=== PATIENT | male | born 2000 | race Caucasian/White ===

== ENCOUNTER 2018-05-03 13:05 | Emergency (ER) | payer MEDICAID, SELFPAY ==
[2018-05-03 13:09] VITALS: BP 126/62; PULSE 80; RESP 16; TEMP 36.8; O2SAT 94
--- NOTE | 2018-05-03 14:48 | ED.GENADUL_ITS ---
Discharge Plan Discharge Details Chief Complaint: GenMedical Primary Care Provider: NONE,NONE ED Provider: Olivia Sutherland Home Meds and New Rx's Prescriptions: No Action albuterol sulfate 8.5 GM HFA aerosol inhaler 3 puff Inhalation PRN RF: 0 Discharge Data Discharge Date/Time-TO BE ENTERED AT DEPARTURE: 05/03/18 15:53 Medical Decision Making MDM Narrative Medical decision making narrative: Patient presents today feeling unwell but largely started this morning. He did have a brief episode of GI upset last night. No vomiting today. Exam is fairly benign. He is also endorsing mild headache. Neuro exam is intact. Patient is afebrile, he appears nontoxic. Exam is otherwise benign. He is not currently endorsing any nausea. Advised that his generalized symptoms may be viral etiology. We will obtain laboratory evaluation and hydrate the patient as he does appear slightly dehydrated on exam. Discussed this plan with the patient who is in agreement. Patient is appointment to start the IV, patient did have a weight secondary to the current needs of the department. When the nurse went in to start the IV he reported that he needed a phone call and quickly got up and left. Patient returned to the department, IV was started as was laboratory evaluation and hydration While awaiting the lab results, patient decided to leave AMA. I was with another patient unable to assess the patient at this time. However, nursing reports that he wanted to leave because everything was taken to long. AMA form was signed. After the patient departed the department was able to review laboratory evaluation and no acute abnormalities are noted. Tick panel is still pending. HPI - General Adult General Date/Time Provider Initiated Documentation: 05/03/18 13:27 . Limitations to Documentation: no limitations . Information obtained by: patient . HPI Narrative: Patient is an otherwise healthy 17-year-old male presenting today with chief complaint of body aches, nausea/vomiting, rash on the lateral aspect of his neck. Patient reports that starting last night he was endorsing some nausea. He reports he vomited ?1. Has not had any vomiting today. She denies any abdominal pain. Reports that this morning he awoke with headache, fatigue and generalized body aches. They are not localized to the joints. He reports this is fairly diffuse. Is also endorsing some lightheadedness. Reports this is intermittent and is not active currently. Reports he took Tylenol this morning. Is declining any further analgesics. Reports I do not like to take medicine. Reports that while waiting in the waiting room his friend also noted a rash to the left side of his neck. He denies any symptoms of this. He is noted to be itchy or painful. Denies any recent fevers or chills Related Data Home Medications Medication Instructions Recorded Confirmed albuterol sulfate 3 puff INHALATION PRN 01/30/14 09/14/14 Allergies Allergy/AdvReac Type Severity Reaction Status Date / Time amoxicillin [Amoxicillin] Allergy Mild Hives Unverified 09/14/14 20:49 amoxicillin trihydrate Allergy Mild Hives Unverified 09/14/14 20:49 [From Augmentin] potassium clavulanate Allergy Mild Hives Unverified 09/14/14 20:49 [From Augmentin] General Stated Complaint: GenMedical SHAYLA: 4 Review of Systems Constitutional Reports as per HPI, Denies chills, Denies difficulty sleeping, Reports fatigue, Denies fever(s), Reports headache(s) and Reports poor appetite Eyes Patient Denies blurry vision, Denies change in vision and Denies loss of vision ENT Reports as per HPI, Denies vertigo, Denies otalgia, Reports headache(s), Denies epistaxis, Denies nasal congestion, Denies sinus pressure, Denies sore throat and Denies throat swelling Cardiovascular Denies chest pain, Denies pedal edema, Denies palpitations and Denies dyspnea Respiratory Denies cough and Denies dyspnea Gastrointestinal Reports as per HPI Genitourinary Reports system reviewed and no additional complaints, except as docu Musculoskeletal Denies abnormal gait and Denies numbness Integumentary/Breasts Denies rash, Denies skin pain and Denies wounds Neurologic Denies abnormal movements, Denies abnormal speech, Denies abnormal gait, Denies behavioral changes, Denies confusion, Denies vertigo, Reports headache(s), Denies focal weakness, Denies loss of vision and Denies numbness Psychiatric Denies behavioral changes and Denies confusion Endocrine Reports fatigue and Denies palpitations Allergic/Immunologic Denies throat swelling [facility] Social History Smoking/Tobacco Use Status: Never Exam Const General: cooperative, healthy appearing, comfortable, no acute distress, well developed and well groomed Nutritional Appearance: average body habitus and well nourished Orientation: alert and awake [facility] Head: normal to inspection and normocephalic Ears: hearing grossly normal bilaterally, external ears normal and TM's normal bilaterally General nose exam: external nose normal Face and sinus: normal facial exam Mouth: oral mucosae normal, lip normal and tongue normal Teeth and gingiva: dentition normal Throat: posterior oropharynx normal, tonsils normal and uvula midline Eyes General: appearance normal, both eyes and all related structures Visual Carpenter: normal visual carpenter by confrontation Alignment and Position: alignment normal Periorbital: periorbital findings normal Eyelids: eyelids normal Conjunctivae: conjunctivae normal Pupils: PERRL and accommodation normal Neck Neck: normal visual inspection, full ROM, no lymphadenopathy and no meningeal signs Resp Effort & Inspection: normal respiratory effort, able to speak in complete sentences and no respiratory distress Auscultation: clear to auscultation bilaterally Cardio Rate: regular rate Rhythm: regular rhythm Heart Sounds: S1 normal GI Inspection: normal to inspection, no abdominal wall ecchymosis, no edema and non -distended Palpation: soft, no hepatosplenomegaly, not firm, no guarding, no masses, not rigid and nontender Auscultation: normal bowel sounds Back/Spine/Pelvis Back: no CVA tenderness Skin General skin exam: no rashes or lesions noted Lesions: no lesions Rashes: no rashes Trauma: no lacerations or abrasions Wounds: no wounds Neuro General: alert, awake, oriented x3, gait normal, tone normal and moves all extremities Cranial Nerves: CN's II-XI intact bilaterally, PERRL, accommodation normal, EOM intact bilaterally, no nystagmus and facial strength normal Cognition: normal cognition Speech: speech normal Gait: normal gait Motor: muscle tone normal throughout, strength 5/5 throughout, no pronator drift and no movement abnormalities noted Sensory Exam: no sensory deficits noted Coordination: [id number] test normal, [id number] test normal, Romberg test normal and rapid alternating movement UE normal Psych Appearance: grossly normal and well kempt Mental Status: mental status grossly normal Speech and Movement: speech and movement normal Mood: congruent mood Affect: normal affect Attitude: cooperative Course Vital Signs Temperature 36.8 C 05/03/18 13:09 Pulse 80 05/03/18 13:09 Respiratory Rate 16 05/03/18 13:09 Blood Pressure 126/62 05/03/18 13:09 Pulse Oximetry 94 L 05/03/18 13:09 Temperature 36.8 C 05/03/18 13:09 Pulse 80 05/03/18 13:09 Respiratory Rate 16 05/03/18 13:09 Blood Pressure 126/62 05/03/18 13:09 Pulse Oximetry 94 L 05/03/18 13:09
[2018-05-03] MEDS: Normal Saline 1,000 ML 1000 ML IV (15:24)
[2018-05-03 15:32] LABS: HCT 42.6 % (40.0-50.0); HGB 14.8 g/dL (13.5-17.5); Mean Corp. HGB Concentration 34.7 g/dL (32.0-36.0); Mean Corpuscular Hemoglobin 30.3 pg (27.0-33.0); Mean Corpuscular Volume 87.3 fL (80-95); Mean Platelet Volume 9.4 fL (8.0-11.0); Platelet Count 262 x1000/uL (130-400); RBC 4.88 m/cumm (4.50-6.00); RBC Distribution Width 12.7 % (11.8-14.1); White Blood Cell Count 6.91 k/cumm (4.4-10.8)
[2018-05-03 15:55] VITALS: RESP 16
[2018-05-03 16:02] LABS: ALT 24 U/L (12-78); AST 18 U/L (15-37); Albumin 4.4 g/dL (3.4-5.0); Alkaline Phosphatase 75 U/L (46-116); Anion Gap 3.4 mmol/L (3-11); BUN 8 mg/dL (7-18); Bilirubin, Total 0.4 mg/dL (0.2-1.0); CO2 29.6 mmol/L (21.0-32.0); CREATININE 0.71 mg/dL (0.70-1.30); Chloride 105 mmol/L (98-107); Glucose 88 mg/dL (70-100); Potassium 4.2 mmol/L (3.5-5.1); Sodium 138 mmol/L (136-145); Total Protein 7.7 g/dL (6.4-8.2)
[2018-05-05 13:44] LABS: Lyme Ab w Rflx to Lyme Confirm Negative
[2018-05-05 23:19] LABS: Anaplasma phagocytophilum Negative (Negative); B. miyamotoi PCR Negative (Negative); Babesia divergens/MO-1 Negative (Negative); Babesia duncani Negative (Negative); Babesia microti Negative (Negative); Ehrlichia chaffeensis Negative (Negative); Ehrlichia ewingii/canis Negative (Negative); Ehrlichia muris eauclairensis Negative (Negative)
== END 2018-05-03 15:53 ==
LOC: ER 14:19
PROVIDERS: Emergency Provider Physician Assistant
DX: R53.81 Other malaise (principal); Z53.29 Procedure and treatment not carried out because of patient's decision for other reasons
CPT/HCPCS: 80053; 85027; 96360; 99283; 86618; 87798

== ENCOUNTER 2018-07-09 13:25 | Emergency (ER) | payer MEDICAID, SELFPAY ==
[2018-07-09 13:34] VITALS: BP 136/79; PULSE 109; RESP 16; TEMP 37.1; O2SAT 96
[2018-07-09 13:37] VITALS: RESP 18
--- NOTE | 2018-07-09 13:41 | DI.RAD_ITS ---
SYMPTOM/DIAGNOSIS: 5TH METACARPAL AND MCP JOINT PAIN RIGHT HAND: Three views. No acute fracture or dislocation is identified. There is mild soft tissue swelling of the index finger. No radiopaque foreign bodies are identified. IMPRESSION: No acute fracture or dislocation. Follow up as clinically appropriate.
--- NOTE | 2018-07-09 14:35 | DI.VRAD_ITS ---
EXAM: XR Right Hand Complete, 3 or more Views EXAM DATE/TIME: 07/09/2018 1:52 PM CLINICAL HISTORY: 17 years old, male; Injury or trauma; Injury history: Banged hand on refrig; Initial encounter; Sprain or strain; Right TECHNIQUE: XR Right hand 3 or more views. COMPARISON: No relevant prior studies available. FINDINGS: Bones/joints: No acute fracture or dislocation is identified. Soft tissues: The soft tissues of the second finger appear mildly swollen. No radiopaque foreign body is identified. IMPRESSION: Mild soft tissue swelling of the second finger without acute fracture or dislocation identified. May consider follow-up in 7 to 10 days if symptoms persist. Dictated and Authenticated by: Reymundo Castorena MD. Ordering:SHARON GAY MD
--- NOTE | 2018-07-09 15:06 | ED.GENADUL_ITS ---
Discharge Plan Disposition Patient Disposition: HOME Condition: Good Discharge Details Chief Complaint: GenMedical Clinical Impression: Finger pain Primary Care Provider: NONE,NONE ED Provider: Gigi Salvador Home Meds and New Rx's Prescriptions: No Action albuterol sulfate 8.5 GM HFA aerosol inhaler 3 puff Inhalation PRN RF: 0 Discharge Instructions Instructions: Finger Sprain (ED) Additional Instructions: Please take Tylenol and Motrin as needed for pain. If you notice any worsening of your symptoms please return immediately. If you notice any worsening of your symptoms, or any new symptoms such as vomiting, diarrhea, fever, chills, shortness of breath, chest pain, numbness, weakness, or fainting , please return immediately to the emergency department for reevaluation. Please follow up with your primary care provider as soon as possible for reassessment and reevaluation. As always, it was a pleasure participating in your medical care today. Discharge Data Discharge Date/Time-TO BE ENTERED AT DEPARTURE: 07/09/18 14:16 Medical Decision Making This is a 17-year-old male with no significant past medical history who presents today for pain in his fifth metacarpal joint after hitting it on a refrigerator yesterday. There is a small bruise over the joint itself, demonstrates minimal pain with movement. Minimal pain with palpation. No evidence of rotational deformity normal flexion extension. No evidence of displacement or abnormality. Came in because my girlfriend made me come in. Physical exam demonstrates no other concerning signs or symptoms, however because of the location boxer fracture is on the differential. X-ray was ordered and demonstrates no evidence of acute fracture. Patient will be discharged home with instructions for NSAID use, and ice as needed. I have extensively reviewed the treatment plan and discharge instructions with the patient and their family. I have addressed all patient concerns at this time. The patient and family was made aware of what symptoms to monitor for that would warrant a return to the emergency department. Discussed the plan with the patient and family, they demonstrate verbal understanding and agreement with our assessment and plan at this time. HPI General Date/Time Provider Initiated Documentation: 07/09/18 13:41 . HPI Narrative: This is a 17-year-old male with no significant past medical history who presents today for evaluation of right knuckle pain. He states that yesterday at work he hit his knuckle on a refrigerator and had some mild pain since then. He describes it is very minimal in nature, but states that his girlfriend convinced him to come in. He states that it is worse with movement, improved by nothing. He is right-hand dominant. He works at [employer]. He denies any associated symptoms and the rest of his hand, his other fingers or his wrist. He denies any history of significant bone fractures. He has no other complaints at this time. Related Data Home Medications Medication Instructions Recorded Confirmed albuterol sulfate 3 puff INHALATION PRN 01/30/14 09/14/14 Allergies Allergy/AdvReac Type Severity Reaction Status Date / Time amoxicillin [Amoxicillin] Allergy Mild Hives Unverified 09/14/14 20:49 amoxicillin trihydrate Allergy Mild Hives Unverified 09/14/14 20:49 [From Augmentin] potassium clavulanate Allergy Mild Hives Unverified 09/14/14 20:49 [From Augmentin] General Stated Complaint: GenMedical SHAYLA: 5 Review of Systems Review of Systems All systems reviewed & are unremarkable except as noted in HPI and below PFSH Social History Smoking/Tobacco Use Status: Former Tobacco Use Exam Narrative Exam Narrative: 1.Const: Well-nourished, Well-developed, appearing stated age 2.Eyes: PERRL, no conjunctival injection, and symmetrical lids. 3.ENT: Atraumatic external nose and ears. Moist MM. Neck: Symmetric, trachea midline, No thyromegaly. 4.CVS: +S1/S2, No murmurs or gallops. Peripheral pulses 2+ and equal in all extremities. Brisk capillary refill in all extremities. 5.RESP: Unlabored respiratory effort. Clear to auscultation bilaterally. No wheezes rales or rhonchi 6.GI: Soft, Nontender/Nondistended, No hepatosplenomegaly. No guarding or rebound. 7.MSK: Normocephalic/Atraumatic, Extremities w/o deformity. No cyanosis or clubbing, Normal movement of all extremities. Patient demonstrates minimal tenderness over the MCP joint on his fifth digit on his right hand. Patient demonstrates excellent 5 out of 5 flexion and extension. No rotational deformity of the finger with flexion. No signs of deformity or abnormality. No evidence of displacement. 8.Skin: Warm, Dry. No rashes or lesions. 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 Sensation grossly intact, no focal neurologic deficits. 10.Psych: (AAO) x3. Appropriate mood and affect Course Vital Signs Temperature 37.1 C 07/09/18 13:34 Pulse 109 H 07/09/18 13:34 Respiratory Rate 16 07/09/18 13:34 Blood Pressure 136/79 07/09/18 13:34 Pulse Oximetry 96 07/09/18 13:34 Temperature 37.1 C 07/09/18 13:34 Temperature Source Temporal Artery Scan 07/09/18 13:34 Pulse 109 H 07/09/18 13:34 Respiratory Rate 18 07/09/18 13:37 Respiratory Effort 07/09/18 13:37 Respiratory Depth Normal 07/09/18 13:37 Blood Pressure 136/79 07/09/18 13:34 Blood Pressure Position Sitting 07/09/18 13:34 Pulse Oximetry 96 07/09/18 13:34 Oxygen Delivery Method Room Air 07/09/18 13:34 Oxygen Flow Rate 0 07/09/18 13:34 Pain Level 6 07/09/18 13:34
== END 2018-07-09 14:16 | disposition home or self-care (01) ==
PROVIDERS: Emergency Provider Student in an Organized Health Care Education/Training Program
DX: M79.641 Pain in right hand (principal)
CPT/HCPCS: 99283; 73130; 99282

== ENCOUNTER 2018-08-05 13:37 | Emergency (ER) | payer MEDICAID, SELFPAY ==
[2018-08-05 13:45] VITALS: BP 111/63; PULSE 86; RESP 16; TEMP 36.8; O2SAT 98
--- NOTE | 2018-08-05 14:27 | W.ED.GENAD ---
Discharge Plan Disposition Patient Disposition: HOME Condition: Stable Discharge Details Chief Complaint: Nausea/Vomit/Diar Clinical Impression: Vomiting Primary Care Provider: None,None ED Provider: Kelley Kevin Home Meds and New Rx's Prescriptions: Continue albuterol sulfate 8.5 GM HFA aerosol inhaler 3 puff Inhalation PRN RF: 0 Discharge Instructions Instructions: Acute Nausea and Vomiting (ED) Additional Instructions: Drink plenty of fluids and get plenty of rest. Follow a bland diet for the next 1-2 days, crackers, toast. Follow-up with your primary care doctor in 1 week for reevaluation. Return immediately to the emergency department for any worsening or new concerning symptoms. Stand Alone Forms: Work Release Discharge Data Discharge Date/Time-TO BE ENTERED AT DEPARTURE: 08/05/18 14:42 Discharge Physician: Kelley Kevin Medical Decision Making 17-year-old male who presents for work note this morning. Patient works at [employer] and states he called out of work this morning for vomiting once and was sent here by his employer for a work note to return tomorrow. Patient denies any further nausea or vomiting. He denies any fever, abdominal pain, diarrhea. Vitals within normal limits. Abdomen soft and nontender. Patient appears nontoxic. Patient states he does not want any workup or medication and only wants a work note. Patient instructed to follow-up with his primary care doctor and return here with any worsening symptoms. HPI General Mode of arrival: ambulatory. Date/Time Provider Initiated Documentation: 08/05/18 13:42. Limitations to Documentation: no limitations. Information obtained by: patient. HPI Narrative: Patient is a 17-year-old male who presents for a work note for today. Patient states he vomited once this morning and states it was blood streaked. No nausea and vomiting since then. Patient denies any fever, diarrhea, urinary symptoms or abdominal pain. He denies any recent surgery, recent travel or recent antibiotics. Patient states he works at [employer] and was told to come here today for a work note so he can return to work tomorrow. Related Data Home Medications Medication Instructions Recorded Confirmed albuterol sulfate 3 puff INHALATION PRN 01/30/14 09/14/14 Allergies Allergy/AdvReac Type Severity Reaction Status Date / Time amoxicillin [Amoxicillin] Allergy Mild Hives Unverified 08/05/18 13:49 amoxicillin trihydrate Allergy Mild Hives Unverified 08/05/18 13:49 [From Augmentin] potassium clavulanate Allergy Mild Hives Unverified 08/05/18 13:49 [From Augmentin] General Stated Complaint: Nausea/Vomit/Diar SHAYLA: 4 Review of Systems Review of Systems All systems reviewed & are unremarkable except as noted in HPI and below Constitutional Reports as per HPI, Denies chills and Denies fever(s) Eyes Denies blurry vision ENT Denies dizziness, Denies sore throat and Denies throat swelling Cardiovascular Denies chest pain and Denies dyspnea Respiratory Denies dyspnea Gastrointestinal Denies abdominal pain, Denies diarrhea and Reports vomiting Genitourinary Denies hematuria and Denies dysuria Musculoskeletal Denies back pain and Denies numbness Integumentary/Breasts Denies lesions and Denies rash Neurologic Denies dizziness and Denies numbness Allergic/Immunologic Denies throat swelling PFSH Asthma (Chronic) Depression (Chronic) S/p bilateral myringotomy with tube placement (Acute) Medical History Asthma (Chronic) Depression (Chronic) Social History Smoking/Tobacco Use Status: Former Tobacco Use Surgical History S/p bilateral myringotomy with tube placement (Acute) Social History Smoking/Tobacco Use Status: Former Tobacco Use alcohol intake: current alcohol intake frequency: holidays/special occasions only substance use type: marijuana Exam Const General: cooperative, healthy appearing and no acute distress HENMT Head: normal to inspection Mouth: oral mucosae normal Eyes General: appearance normal, both eyes and all related structures Neck Neck: normal visual inspection Resp Effort & Inspection: normal respiratory effort and able to speak in complete sentences Auscultation: clear to auscultation bilaterally Cardio Rate: regular rate Rhythm: regular rhythm GI Palpation: soft, not firm, not rigid and nontender Auscultation: normal bowel sounds Skin General skin exam: no rashes or lesions noted Neuro General: alert, awake and oriented x3 Motor: muscle tone normal throughout Extrem General: normal to inspection and full ROM Psych Appearance: grossly normal Affect: normal affect Course Vital Signs Temperature 98.2 F 08/05/18 13:45 Pulse 86 08/05/18 13:45 Respiratory Rate 16 08/05/18 13:45 Blood Pressure 111/63 08/05/18 13:45 Pulse Oximetry 98 08/05/18 13:45 Temperature 98.2 F 08/05/18 13:45 Temperature Source Skin 08/05/18 13:45 Pulse 86 08/05/18 13:45 Respiratory Rate 16 08/05/18 13:45 Respiratory Effort 08/05/18 13:47 Blood Pressure 111/63 08/05/18 13:45 Blood Pressure Position Sitting 08/05/18 13:45 Pulse Oximetry 98 08/05/18 13:45 Oxygen Delivery Method Room Air 08/05/18 13:45 Oxygen Flow Rate 0 08/05/18 13:45 Pain Level 0 08/05/18 13:45
--- NOTE | 2018-08-05 14:35 | ED.GENADUL_ITS ---
Discharge Plan Disposition Patient Disposition: HOME Condition: Stable Discharge Details Chief Complaint: Nausea/Vomit/Diar Clinical Impression: Vomiting Primary Care Provider: None,None ED Provider: Kelley Kevin Home Meds and New Rx's Prescriptions: Continue albuterol sulfate 8.5 GM HFA aerosol inhaler 3 puff Inhalation PRN RF: 0 Discharge Instructions Instructions: Acute Nausea and Vomiting (ED) Additional Instructions: Drink plenty of fluids and get plenty of rest. Follow a bland diet for the next 1-2 days, crackers, toast. Follow-up with your primary care doctor in 1 week for reevaluation. Return immediately to the emergency department for any worsening or new concerning symptoms. Stand Alone Forms: Work Release Discharge Data Discharge Date/Time-TO BE ENTERED AT DEPARTURE: 08/05/18 14:42 Discharge Physician: Kelley Kevin Medical Decision Making 17-year-old male who presents for work note this morning. Patient works at [employer] and states he called out of work this morning for vomiting once and was sent here by his employer for a work note to return tomorrow. Patient denies any further nausea or vomiting. He denies any fever, abdominal pain, diarrhea. Vitals within normal limits. Abdomen soft and nontender. Patient appears nontoxic. Patient states he does not want any workup or medication and only wants a work note. Patient instructed to follow-up with his primary care doctor and return here with any worsening symptoms. HPI General Mode of arrival: ambulatory . Date/Time Provider Initiated Documentation: 08/05/18 13:42 . Limitations to Documentation: no limitations . Information obtained by: patient . HPI Narrative: Patient is a 17-year-old male who presents for a work note for today. Patient states he vomited once this morning and states it was blood streaked. No nausea and vomiting since then. Patient denies any fever, diarrhea, urinary symptoms or abdominal pain. He denies any recent surgery, recent travel or recent antibiotics. Patient states he works at [employer] and was told to come here today for a work note so he can return to work tomorrow. Related Data Home Medications Medication Instructions Recorded Confirmed albuterol sulfate 3 puff INHALATION PRN 01/30/14 09/14/14 Allergies Allergy/AdvReac Type Severity Reaction Status Date / Time amoxicillin [Amoxicillin] Allergy Mild Hives Unverified 08/05/18 13:49 amoxicillin trihydrate Allergy Mild Hives Unverified 08/05/18 13:49 [From Augmentin] potassium clavulanate Allergy Mild Hives Unverified 08/05/18 13:49 [From Augmentin] General Stated Complaint: Nausea/Vomit/Diar SHAYLA: 4 Review of Systems Review of Systems All systems reviewed & are unremarkable except as noted in HPI and below Constitutional Reports as per HPI, Denies chills and Denies fever(s) Eyes Denies blurry vision ENT Denies dizziness, Denies sore throat and Denies throat swelling Cardiovascular Denies chest pain and Denies dyspnea Respiratory Denies dyspnea Gastrointestinal Denies abdominal pain, Denies diarrhea and Reports vomiting Genitourinary Denies hematuria and Denies dysuria Musculoskeletal Denies back pain and Denies numbness Integumentary/Breasts Denies lesions and Denies rash Neurologic Denies dizziness and Denies numbness Allergic/Immunologic Denies throat swelling PFSH Asthma (Chronic) Depression (Chronic) S/p bilateral myringotomy with tube placement (Acute) Medical History Asthma (Chronic) Depression (Chronic) Social History Smoking/Tobacco Use Status: Former Tobacco Use Surgical History S/p bilateral myringotomy with tube placement (Acute) Social History Smoking/Tobacco Use Status: Former Tobacco Use alcohol intake: current alcohol intake frequency: holidays/special occasions only substance use type: marijuana Exam Const General: cooperative, healthy appearing and no acute distress HENMT Head: normal to inspection Mouth: oral mucosae normal Eyes General: appearance normal, both eyes and all related structures Neck Neck: normal visual inspection Resp Effort & Inspection: normal respiratory effort and able to speak in complete sentences Auscultation: clear to auscultation bilaterally Cardio Rate: regular rate Rhythm: regular rhythm GI Palpation: soft, not firm, not rigid and nontender Auscultation: normal bowel sounds Skin General skin exam: no rashes or lesions noted Neuro General: alert, awake and oriented x3 Motor: muscle tone normal throughout Extrem General: normal to inspection and full ROM Psych Appearance: grossly normal Affect: normal affect Course Vital Signs Temperature 98.2 F 08/05/18 13:45 Pulse 86 08/05/18 13:45 Respiratory Rate 16 08/05/18 13:45 Blood Pressure 111/63 08/05/18 13:45 Pulse Oximetry 98 08/05/18 13:45 Temperature 98.2 F 08/05/18 13:45 Temperature Source Skin 08/05/18 13:45 Pulse 86 08/05/18 13:45 Respiratory Rate 16 08/05/18 13:45 Respiratory Effort 08/05/18 13:47 Blood Pressure 111/63 08/05/18 13:45 Blood Pressure Position Sitting 08/05/18 13:45 Pulse Oximetry 98 08/05/18 13:45 Oxygen Delivery Method Room Air 08/05/18 13:45 Oxygen Flow Rate 0 08/05/18 13:45 Pain Level 0 08/05/18 13:45
== END 2018-08-05 14:42 | disposition home or self-care (01) ==
LOC: ER 14:39
PROVIDERS: Emergency Provider Physician Assistant
DX: R11.2 Nausea with vomiting, unspecified (principal)
CPT/HCPCS: 99281

== ENCOUNTER 2018-10-11 21:46 | Emergency (ER) | payer MEDICAID, SELFPAY ==
--- NOTE | 2018-10-11 21:53 | W.ED.GENAD ---
Discharge Plan Disposition Patient Disposition: HOME Condition: Improving Discharge Details Chief Complaint: Laceration Clinical Impression: Laceration of hand, right Primary Care Provider: None,None ED Provider: Jeet Jones Home Meds and New Rx's Prescriptions: Continued albuterol sulfate 8.5 GM HFA aerosol inhaler 3 puff Inhalation PRN RF: 0 Discharge Instructions Instructions: Laceration (ED) Additional Instructions: 3 sutures were placed. This should be removed in 7-10 days time. Return to see her regular doctor. Return sooner if you develop a fever, discharge from the wound, any other acute concerns Continue all regular medications. Medical Decision Making 17-year-old male presents from home after punching a wall in anger and suffering a laceration to the ulnar aspect of the proximal portion of his right fifth digit. He has no motor or sensory deficits. Area was cleansed, irrigated, anesthetized, examined in a bloodless field without evidence of foreign body. Repaired with interrupted sutures. Radiograph obtained to exclude underlying bony injury. No foreign body or fracture appreciated. Patient stable for discharge home. He will return or see PMD for removal of sutures. HPI General Mode of arrival: ambulatory. Date/Time Provider Initiated Documentation: 10/11/18 21:48. Limitations to Documentation: no limitations. Information obtained by: patient. History of Present Illness 17 year old M presents to the emergency department with the chief complaint of Laceration right hand, described as moderate, Quality is described as aching, and is localized to the right and upper extremity. Patient reports no radiation. Patient started experiencing this minute(s) and it has been constant. No relieving factors improve symptom(s), No exacerbating factors reported . Patient notes no other symptoms.. Patient did receive the following treatments prior to arrival, none Related Data Home Medications Medication Instructions Recorded Confirmed albuterol sulfate 3 puff INHALATION PRN 01/30/14 10/11/18 Allergies Allergy/AdvReac Type Severity Reaction Status Date / Time amoxicillin [Amoxicillin] Allergy Mild Hives Unverified 10/11/18 22:00 amoxicillin trihydrate Allergy Mild Hives Unverified 10/11/18 22:00 [From Augmentin] potassium clavulanate Allergy Mild Hives Unverified 10/11/18 22:00 [From Augmentin] General SHAYLA: 4 Review of Systems Review of Systems No motor weakness, numbness, tingling [facility] Medical History Asthma (Chronic) Depression (Chronic) Surgical History S/p bilateral myringotomy with tube placement (Acute) Social History Smoking and Tabacco status: Former Tobacco Use alcohol intake: current alcohol intake frequency: holidays/special occasions only substance use type: marijuana Exam Narrative Exam Narrative: GEN: awake, alert, oriented 3. Pleasant, well groomed, interactive. HEAD: Normocephalic, atraumatic ENT: Mucous membranes moist, oropharynx unremarkable, External ear exam unremarkable EYES: PERRL, EOMI NECK: Full ROM, no DAO, no menigismus EXT: Full ROM, no edema, no rash. R hand with laceration overlying proximal phalanx of the ulnar aspect of the fifth digit. There is normal sensation and distal 2 pt discrimination is 1cm Neuro: Grossly normal neurologic exam, conversant, interactive. Psych: Speech fluent, thoughts congruent, affect normal Procedures Laceration Laceration 1: Site: hand Side (If applicable): right Size (cm): 3 Description: linear Depth: simple, single layer Local Anesthetic: Lidocaine 1% Amount of anesthesia used (mL): 2 Skin layer closed with: nylon Size (cm): 4-0 Number of sutures: 3 Technique: simple, interrupted
[2018-10-11 21:56] VITALS: BP 101/62; PULSE 99; RESP 16; TEMP 36.6; O2SAT 99
--- NOTE | 2018-10-11 21:56 | ED.GENADUL_ITS ---
Discharge Plan Disposition Patient Disposition: HOME Condition: Improving Discharge Details Chief Complaint: Laceration Clinical Impression: Laceration of hand, right Primary Care Provider: None,None ED Provider: Jeet Jones Home Meds and New Rx's Prescriptions: Continued albuterol sulfate 8.5 GM HFA aerosol inhaler 3 puff Inhalation PRN RF: 0 Discharge Instructions Instructions: Laceration (ED) Additional Instructions: 3 sutures were placed. This should be removed in 7-10 days time. Return to see her regular doctor. Return sooner if you develop a fever, discharge from the wound, any other acute concerns Continue all regular medications. Medical Decision Making 17-year-old male presents from home after punching a wall in anger and suffering a laceration to the ulnar aspect of the proximal portion of his right fifth digit. He has no motor or sensory deficits. Area was cleansed, irrigated, anesthetized, examined in a bloodless field without evidence of foreign body. Repaired with interrupted sutures. Radiograph obtained to exclude underlying bony injury. No foreign body or fracture appreciated. Patient stable for discharge home. He will return or see PMD for removal of sutures. HPI General Mode of arrival: ambulatory . Date/Time Provider Initiated Documentation: 10/11/18 21:48 . Limitations to Documentation: no limitations . Information obtained by: patient . History of Present Illness 17 year old M presents to the emergency department with the chief complaint of Laceration right hand, described as moderate, Quality is described as aching, and is localized to the right and upper extremity. Patient reports no radiation. Patient started experiencing this minute(s) and it has been constant. No relieving factors improve symptom(s), No exacerbating factors reported . Patient notes no other symptoms.. Patient did receive the following treatments prior to arrival, none Related Data Home Medications Medication Instructions Recorded Confirmed albuterol sulfate 3 puff INHALATION PRN 01/30/14 10/11/18 Allergies Allergy/AdvReac Type Severity Reaction Status Date / Time amoxicillin [Amoxicillin] Allergy Mild Hives Unverified 10/11/18 22:00 amoxicillin trihydrate Allergy Mild Hives Unverified 10/11/18 22:00 [From Augmentin] potassium clavulanate Allergy Mild Hives Unverified 10/11/18 22:00 [From Augmentin] General SHAYLA: 4 Review of Systems Review of Systems No motor weakness, numbness, tingling [facility] Medical History Asthma (Chronic) Depression (Chronic) Surgical History S/p bilateral myringotomy with tube placement (Acute) Social History Smoking and Tabacco status: Former Tobacco Use alcohol intake: current alcohol intake frequency: holidays/special occasions only substance use type: marijuana Exam Narrative Exam Narrative: GEN: awake, alert, oriented 3. Pleasant, well groomed, interactive. HEAD: Normocephalic, atraumatic ENT: Mucous membranes moist, oropharynx unremarkable, External ear exam unremarkable EYES: PERRL, EOMI NECK: Full ROM, no DAO, no menigismus EXT: Full ROM, no edema, no rash. R hand with laceration overlying proximal phalanx of the ulnar aspect of the fifth digit. There is normal sensation and distal 2 pt discrimination is 1cm Neuro: Grossly normal neurologic exam, conversant, interactive. Psych: Speech fluent, thoughts congruent, affect normal Procedures Laceration Laceration 1: Site: hand Side (If applicable): right Size (cm): 3 Description: linear Depth: simple, single layer Local Anesthetic: Lidocaine 1% Amount of anesthesia used (mL): 2 Skin layer closed with: nylon Size (cm): 4-0 Number of sutures: 3 Technique: simple, interrupted
--- NOTE | 2018-10-11 22:00 | DI.RAD_ITS ---
SYMPTOM/DIAGNOSIS: PAIN, TRAUMA, 5TH FINGER LACERATION RIGHT HAND: Two views were obtained. No fracture is seen.
--- NOTE | 2018-10-11 22:48 | DI.VRAD_ITS ---
EXAM: XR Right Hand, 1 or 2 Views EXAM DATE/TIME: 10/11/2018 10:01 PM CLINICAL HISTORY: 17 years old, male; Injury or trauma; Injury history: Punched a tv; Initial encounter; Laceration; Hand; Right; Injury date: 10/11/18 TECHNIQUE: XR Right hand 1 or 2 views. COMPARISON: CR XR hand RT complete 07/09/2018 1:47 PM FINDINGS: Bones/joints: Osseous anatomic alignment is well preserved. No acutely displaced fracture or dislocation. Joint spaces are well preserved. Soft tissues: Soft tissue swelling and emphysema at the base of the little finger. IMPRESSION: 1. Negative for acute skeletal pathology. 2. Soft tissue laceration and soft tissue swelling about the base of the little finger. Dictated and Authenticated by: Kameron Arellano MD. Ordering:KANNAN Marcano MD
[2018-10-11 22:55] VITALS: BP 101/62; PULSE 99; RESP 16; TEMP 36.6; O2SAT 99
== END 2018-10-11 22:57 | disposition home or self-care (01) ==
PROVIDERS: Emergency Provider Emergency Medicine
DX: S61.216A Laceration without foreign body of right little finger without damage to nail, initial encounter (principal); W22.8XXA Striking against or struck by other objects, initial encounter
CPT/HCPCS: 12002; 99283; 73120; 99282